=== PATIENT | male | born 1975 | race Caucasian/White ===

== ENCOUNTER → 2017-10-23 | Day surgery (SDC) | payer BC ==
[2017-10-08 12:19] VITALS: BMI 22.9
[~2017-10-23] MED LIST: Cyclopentolate 1% Opth Drop 2 ML BOT FS SCH; Cyclopentolate 1% Opth Drop 2 ML BOT ONE; Dexamethasone 20 MG/5 ML VIAL ONE; Fentanyl 100 MCG/2 ML VIAL ONE; Fluorouracil 100 MG, Enoxaparin Sodium 25 MG, EPINEPHrine 0.3 MG in Ophthalmic Irrigati... IVPB SCH; Indocyanine Green 25 MG/10 ML VIAL ONE; Lidocaine 1% PF 5 ML VIAL ONE; Midazolam HCl 2 mg/2 ml Vial ONE; Ondansetron HCl/PF 4 MG/2 ML Vial ONE; PROPOFOL 200 MG/20 ML VIAL ONE; Phenylephrine 2.5% Ophth Soln 5 ML BOT FS SCH; Phenylephrine 2.5% Ophth Soln 5 ML BOT ONE
--- NOTE | 2017-10-24 10:23 | OP ---
DATE OF PROCEDURE: 10/23/2017 PREOPERATIVE DIAGNOSIS: Macular hole, left eye. POSTOPERATIVE DIAGNOSIS: Macular hole, left eye. PROCEDURES PERFORMED: Pars plana vitrectomy, internal limiting membrane peel, left eye. SURGEON: Rico Philip M.D. ANESTHESIA: General endotracheal anesthesia. COMPLICATIONS: None. PROCEDURE IN DETAIL: The patient was identified in the preoperative holding area. Appropriate infor med consent for the planned surgical procedure on the left eye had been obtained. The patient was tr ansported to the operative suite where appropriate cardiopulmonary monitoring was established. Gener al endotracheal anesthesia was initiated. Local anesthesia was obtained using retrobulbar block. Th e eye was prepped and draped in the usual sterile manner for ophthalmic surgery on the left eye. Lid speculum was placed in the left eye. The 25-gauge trocars were placed in conjunctiva and sclera sup ratemporally, inferotemporally, and supranasally. Infusion line was placed inferotemporally. Light pipe and vitreous cutter were inserted into the eye. Core of vitrectomy was performed. Posterior hy aloid face was elevated using vacuum suction and peeled into the macula periphery. Indocyanine green dye was infused onto the posterior pole x1, identifying the internal limiting membrane. This was pe eled across the entire macula and a flap of the ILM was placed over the macular hole. Complete air f luid exchange was performed with 10 minutes being allowed for fluid to drain posteriorly. Care was t aken to ensure that the ILM flap remained over the macular hole. A 15% perfluoropropane gas was infu sed into the eye. Trocars were removed and eye was noted to retain pressure well. Retrobulbar Kenal og and subconjunctival Ancef were placed. Atropine and antibiotic ointment were placed, and the eye was patched and shielded. The patient was taken to the postoperative recovery unit in good condition having suffered no immediate perioperative complications. DISCHARGE INSTRUCTIONS: The patient was instructed to keep patch and shield on, avoid flat on back p ositioning, and follow up in the morning with Dr. Philip.
== END ==
LOC: SDC 08:23
PROVIDERS: ATTEND Ophthalmology Retina Specialist
PROC: 08NF3ZZ Release Left Retina, Percutaneous Approach (ICD-10-PCS; principal; 2017-10-23)
PROC: 08B53ZZ Excision of Left Vitreous, Percutaneous Approach (ICD-10-PCS; principal; 2017-10-23)
DX: H35.342 Macular cyst, hole, or pseudohole, left eye (principal); Z88.8 Allergy status to other drugs, medicaments and biological substances; Z79.899 Other long term (current) drug therapy
CPT/HCPCS: 67025; J0171; J1100; J1650; J2001; J2250; J2405; J2704; J3010; J9190